=== PATIENT | male | born 1985 | race Caucasian/White ===

== ENCOUNTER 2021-02-05 19:36 | Emergency (ER) | payer SELFPAY ==
[~2021-02-05] VITALS: Ht 185.4 cm; Wt 83.9 kg
--- NOTE | 2021-02-05 19:44 | NUR ---
pATIENT CALLED FOR TRIAGE, PATIENT NOT IN WAITING ROOM
[2021-02-05] MEDS ORDERED: MORPHINE SULFATE 4 MG/1 ML DISP.SYRIN ONE (20:08)
[2021-02-05] MEDS ORDERED: MORPHINE SULFATE 2 MG/1 ML DISP.SYRIN ONE (20:08)
[2021-02-05] MEDS ORDERED: SULF1TAB48 PO (20:28)
--- NOTE | 2021-02-05 20:28 | NUR ---
I&D tray set up for ERMD.
--- NOTE | 2021-02-05 20:41 | NUR ---
Patient discharged to home in stable condition. Written and verbal after care instructions given. Patient verbalizes understanding of instructions. Stressed follow up or return to ER for worsening s/s. Patient ambulated with steady gait. All belongings returned to patient prior to departure.
[2021-02-05] MEDS ORDERED: METRONIDAZOLE 500 MG/NS 100 ML PIGGYBACK IV ONE (20:45)
[2021-02-05] MEDS ORDERED: CEFTRIAXONE 1 G in IV DEXTROSE 5% 50 ML IV ONE (20:45)
[2021-02-05 20:50] VITALS: BP 133/77
[2021-02-05] MEDS ORDERED: MORPHINE SULFATE 4 MG/1 ML DISP.SYRIN IM ONE (21:00)
[2021-02-05] MEDS ORDERED: LIDOCAINE 1%-EPI 1:100,000 20 ML VIAL IJ ONE (21:00)
== END 2021-02-05 20:51 | disposition home or self-care (01) ==
LOC: ER 19:36
DX: L02.31 Cutaneous abscess of buttock (principal)
CPT/HCPCS: A4663; J2270